=== PATIENT | male | born 1995 | race Hispanic/Latino ===

== ENCOUNTER 2017-12-13 06:15 | Emergency (ER) | payer SELFPAY ==
[2017-12-13 06:16] VITALS: BMI 20.2
--- NOTE | 2017-12-13 07:46 | ED PDOC ---
HPI: General Adult Time Seen by Provider: 12/13/17 07:11 Chief Complaint (Nursing): ENT Problem Chief Complaint (Provider): ENT Problem History Per: Patient History/Exam Limitations: no limitations Onset/Duration Of Symptoms: Days (x 5) Current Symptoms Are (Timing): Still Present Additional Complaint(s): Mr. Powers is a 22 year old male who presents to the ED complaining of sore throat for 5 days. No difficulty swallowing. Patient was told by other hospital he had enlarged tonsils. No fever, coughing, or shortness of breath. Patient states she quit smoking. PMD: No Family Provider Past Medical History Reviewed: Historical Data, Nursing Documentation, Vital Signs Vital Signs: Last Vital Signs Temp 98.2 F 12/13/17 06:41 Pulse 81 12/13/17 06:41 Resp 16 12/13/17 06:41 BP 134/75 12/13/17 06:41 Pulse Ox 99 12/13/17 08:58 - Medical History PMH: Denies: Diabetes, Hepatitis, HIV, HTN, Seizures, Sexually Transmitted Disease - Surgical History Surgical History: No Surg Hx - Family History Family History: States: Unknown Family Hx - Social History Current smoker - smoking cessation education provided: No (Quit smoking) - Immunization History Hx Tetanus Toxoid Vaccination: Yes - Home Medications Home Medications: Ambulatory Orders Medication Instructions Recorded Temazepam [Restoril] 7.5 mg PO HS PRN #10 cap 03/16/16 Clindamycin [Cleocin] 300 mg PO Q6H #28 cap 08/04/16 - Allergies Allergies/Adverse Reactions: Allergies Allergy/AdvReac Type Severity Reaction Status Date / Time Penicillins Allergy RASH Verified 03/16/16 13:37 Review of Systems ROS Statement: Except As Marked, All Systems Reviewed And Found Negative Constitutional: Negative for: Fever ENT: Positive for: Throat Pain. Negative for: Other (difficulty swallowing) Respiratory: Negative for: Cough, Shortness of Breath Physical Exam - Reviewed Nursing Documentation Reviewed: Yes Vital Signs Reviewed: Yes - Physical Exam ENT: Positive for: Pharynx Is (Mild enlarged tonsils bilaterally), Other ((+): Uvula is midline (-): Drooling). Negative for: Tonsillar Exudate Cardiovascular/Chest: Positive for: Regular Rate, Rhythm Respiratory: Positive for: Normal Breath Sounds. Negative for: Respiratory Distress Neurologic/Psych: Positive for: Alert, Oriented (x 3) - ECG O2 Sat by Pulse Oximetry: 99 (RA) Pulse Ox Interpretation: Normal Medical Decision Making Medical Decision Making: Time: 07:37 Impression(s): Sore Throat, Pharyngitis Plan: - Motrin Oral Susp 600 mg PO STAT - Rapid Strep Group A Antigen Stat (+) Group A Beta Strep Ag Time: 08:47 - Zithromax 500 mg PO Scribe Attestation: Documented by Fernie Huntley, acting as a scribe for Veronica De Leon MD Provider Scribe Attestation: All medical record entries made by the Scribe were at my direction and personally dictated by me. I have reviewed the chart and agree that the record accurately reflects my personal performance of the history, physical exam, medical decision making, and the department course for this patient. I have also personally directed, reviewed, and agree with the discharge instructions and disposition. Disposition - Disposition Forms: [employer] (Swedish)
[2017-12-13 10:20] VITALS: BP 149/77; PULSE 82; RESP 18; TEMP 97.9; O2SAT 97
== END 2017-12-13 10:31 | disposition home or self-care (01) ==
LOC: H.ER 06:15
DX: J02.0 Streptococcal pharyngitis (principal); Z88.0 Allergy status to penicillin
CPT/HCPCS: 87430; 96372; 99284; J1100

== ENCOUNTER 2018-10-18 06:15 | Emergency (ER) | payer MEDICAID ==
[2018-10-18 06:16] VITALS: BMI 20.2
--- NOTE | 2018-10-18 07:42 | ED PDOC ---
HPI: General Adult Time Seen by Provider: 10/18/18 07:27 Chief Complaint (Provider): Headache History Per: Patient History/Exam Limitations: no limitations Onset/Duration Of Symptoms: Days Current Symptoms Are (Timing): Still Present Additional Complaint(s): 23 year old male with a past medical history of possible anemia who is presenting to the ED for evaluation of headaches ongoing for months. Patient states that he had a doctors visit over 1 year ago where he was told his iron level was low and that he is anemic but he never followed up. He also admits that he went to [facility] 3-4 months ago and again never followed up. He states that he has medicated with Advil in the past with no relief but denies taking any today. Patient also reports that he stopped drinking and smoking a few months ago. He denies any fevers, nausea, or vomiting. PMD: none provided Past Medical History Reviewed: Historical Data, Nursing Documentation, Vital Signs - Medical History PMH: No Chronic Diseases Denies: Diabetes, Hepatitis, HIV, HTN, Seizures, Sexually Transmitted Disease - Surgical History Surgical History: No Surg Hx - Family History Family History: States: Unknown Family Hx - Social History Current smoker - smoking cessation education provided: No Ex-Smoker (has not smoked in the last 12 months): Yes Alcohol: None Drugs: Denies - Immunization History Hx Tetanus Toxoid Vaccination: Yes - Home Medications Home Medications: Ambulatory Orders Medication Instructions Recorded Temazepam [Restoril] 7.5 mg PO HS PRN #10 cap 03/16/16 RX: Clindamycin [Cleocin] 300 mg PO Q6H #28 cap 08/04/16 Azithromycin [Zithromax] 500 mg PO DAILY #4 tab 12/13/17 Naproxen [Naprosyn] 500 mg PO BID PRN #15 tablet 12/13/17 - Allergies Allergies/Adverse Reactions: Allergies Allergy/AdvReac Type Severity Reaction Status Date / Time Penicillins Allergy RASH Verified 03/16/16 13:37 Review of Systems ROS Statement: Except As Marked, All Systems Reviewed And Found Negative Constitutional: Negative for: Fever Gastrointestinal: Negative for: Nausea, Vomiting Neurological: Positive for: Headache Physical Exam - Reviewed Nursing Documentation Reviewed: Yes Vital Signs Reviewed: Yes - Physical Exam Appears: Positive for: Non-toxic, No Acute Distress (completely comfortable, in no distress) Head Exam: Positive for: ATRAUMATIC, NORMAL INSPECTION, NORMOCEPHALIC Skin: Positive for: Normal Color Eye Exam: Positive for: Normal appearance Neck: Positive for: Normal, Painless ROM Cardiovascular/Chest: Positive for: Regular Rate, Rhythm. Negative for: Murmur Respiratory: Positive for: Normal Breath Sounds. Negative for: Respiratory Distress Gastrointestinal/Abdominal: Positive for: Normal Exam, Soft. Negative for: Tenderness Extremity: Positive for: Normal ROM Neurologic/Psych: Positive for: Alert, mophead sewer II-XII, Oriented, Gait (stable). Negative for: Motor/Sensory Deficits, Aphasia, Facial Droop - Laboratory Results Result Diagrams: 10/18/18 08:08 10/18/18 08:08 Medical Decision Making Medical Decision Making: Time: 7:57 Plan: headaches, gen weakness, normal exam --CMP --CBC --Motrin 600 mg PO 9:10 Labs were reviewed with no clinically significant abnormalities. Patient, upon discussion with provider continues to complain about headaches. Provider ordered a CT Head for precautionary measures. CT Head: FINDINGS: HEMORRHAGE: No intracranial hemorrhage. BRAIN: No mass effect or edema. No atrophy or chronic microvascular ischemic changes. VENTRICLES: Unremarkable. No hydrocephalus. CALVARIUM: Unremarkable. PARANASAL SINUSES: Unremarkable as visualized. No significant inflammatory changes. MASTOID AIR CELLS: Unremarkable as visualized. No inflammatory changes. OTHER FINDINGS: None. IMPRESSION: No acute intracranial abnormalities. No significant findings to account for the clinical presentation. pt sleeping throughout ER stay. in no distress. normal vitals and labs. isntrcuted to follow up as oupt. Scribe Attestation: Documented by Michelle Anguiano, acting as a scribe for Ajay Law MD. Provider Scribe Attestation: All medical record entries made by the Scribe were at my direction and pers onally dictated by me. I have reviewed the chart and agree that the record accurately reflects my personal performance of the history, physical exam, medical decision making, and the department course for this patient. I have also personally directed, reviewed, and agree with the discharge instructions and disposition. Disposition - Clinical Impression Clinical Impression: General weakness, Headache - Patient ED Disposition Is Patient to be Admitted: No Counseled Patient/Family Regarding: Studies Performed, Diagnosis, Need For Followup - Disposition Referrals: [facility] [Outside] Disposition: Routine/Home Disposition Time: 09:00 Condition: IMPROVED Additional Instructions: follow up in the clinic for ongoing medical care return to the ED with any worsening or concerning symptoms Instructions: Generalized Weakness (DC), Weakness (ED) Forms: [employer] (Sami)
[2018-10-18 08:48] LABS: BASO % 0.1 % (0.0-2.0); EOS # 0.1 K/uL (0.0-0.7); EOS % 1.1 % (0.0-4.0); HEMOGLOBIN 16.2 g/dL (12.0-18.0); LYMPH # 1.7 K/uL (1.0-4.3); LYMPH % 25.3 % (20.0-40.0); MEAN CELL VOLUME 89.6 fl (80.0-94.0); MEAN CORPUSCULAR HEMOGLOBIN 30.3 pg (27.0-31.0); MEAN CORPUSCULAR HGB CONC 33.8 g/dL (33.0-37.0); MEAN PLATELET VOLUME 8.4 fl (7.2-11.7); MONO # 0.6 K/uL (0.0-0.8); MONO % 8.6 % (0.0-10.0); NEUT # 4.3 K/uL (1.8-7.0); NEUT % 64.9 % (50.0-75.0); NRBC % 0.2 % (0.0-0.0); RBC 5.34 Mil/uL (4.40-5.90); RED CELL DISTRIBUTION WIDTH 12.6 % (11.5-14.5); WHITE BLOOD COUNT 6.6 K/uL (4.8-10.8)
[2018-10-18 09:03] LABS: ALB/GLOB RATIO 1.4 (1.0-2.1); ALBUMIN 4.6 g/dL (3.5-5.0); ALT/SGPT 41 U/L (21-72); AST/SGOT 39 U/L (17-59); BLOOD UREA NITROGEN 20 mg/dl (9-20); CALCIUM 9.7 mg/dL (8.4-10.2); GFR NON-AFRICAN AMERICAN > 60
[2018-10-18 09:55] VITALS: RESP 18
[2018-10-18 10:03] VITALS: BP 137/81; PULSE 95; TEMP 98.5; O2SAT 100
--- NOTE | 2018-10-18 10:34 | CT ---
Date of service: 10/18/2018 PROCEDURE: CT HEAD WITHOUT CONTRAST. HISTORY: headache COMPARISON: None available. TECHNIQUE: Axial computed tomography images were obtained through the head/brain without intravenous contrast. Supplemental Coronal and Sagittal projections created and reviewed. Radiation dose: Total exam DLP = 813.35 mGy-cm. This CT exam was performed using one or more of the following dose reduction techniques: Automated exposure control, adjustment of the mA and/or kV according to patient size, and/or use of iterative reconstruction technique. FINDINGS: HEMORRHAGE: No intracranial hemorrhage. BRAIN: No mass effect or edema. No atrophy or chronic microvascular ischemic changes. VENTRICLES: Unremarkable. No hydrocephalus. CALVARIUM: Unremarkable. PARANASAL SINUSES: Unremarkable as visualized. No significant inflammatory changes. MASTOID AIR CELLS: Unremarkable as visualized. No inflammatory changes. OTHER FINDINGS: None. IMPRESSION: No acute intracranial abnormalities. No significant findings to account for the clinical presentation.
== END 2018-10-18 10:55 | disposition home or self-care (01) ==
LOC: H.ER 06:15
DX: R51 Headache (principal); M62.81 Muscle weakness (generalized); D64.9 Anemia, unspecified; Z88.0 Allergy status to penicillin

== ENCOUNTER 2018-11-18 01:04 | Emergency (ER) | payer SELFPAY ==
[2018-11-18 01:04] VITALS: BMI 20.2
[2018-11-18 01:30] VITALS: O2SAT 97
[2018-11-18] MEDS ORDERED: DiphenhydrAMINE 50 mg/ml Inj IM STA (03:06)
[2018-11-18 03:42] LABS: BASO % 0.3 % (0.0-2.0); EOS # 0.1 K/uL (0.0-0.7); EOS % 1.7 % (0.0-4.0); LYMPH % 22.8 % (20.0-40.0); MEAN CELL VOLUME 88.1 fl (80.0-94.0); MEAN CORPUSCULAR HEMOGLOBIN 30.1 pg (27.0-31.0); MEAN CORPUSCULAR HGB CONC 34.2 g/dL (33.0-37.0); MEAN PLATELET VOLUME 8.1 fl (7.2-11.7); MONO # 0.8 K/uL (0.0-0.8); MONO % 9.3 % (0.0-10.0); NEUT # 5.8 K/uL (1.8-7.0); NEUT % 65.9 % (50.0-75.0); NRBC % 0.1 % (0.0-0.0); RBC 5.32 Mil/uL (4.40-5.90); RED CELL DISTRIBUTION WIDTH 12.8 % (11.5-14.5); WHITE BLOOD COUNT 8.8 K/uL (4.8-10.8)
[2018-11-18] MEDS ORDERED: DiphenhydrAMINE 50 mg/ml Inj ONE (03:43)
[2018-11-18 03:47] LABS: URINE BACTERIA OCC (<OCC); URINE BILIRUBIN NEGATIVE (NEGATIVE); URINE BLOOD NEGATIVE (NEGATIVE); URINE CLARITY TURBID (Clear); URINE COLOR AMBER (YELLOW); URINE GLUCOSE (UA) NEG (NEGATIVE); URINE LEUKOCYTE ESTERASE NEG Leu/uL (Negative); URINE PROTEIN NEGATIVE (NEGATIVE)
[2018-11-18 03:52] LABS: ALB/GLOB RATIO 1.4 (1.0-2.1); ALBUMIN 4.4 g/dL (3.5-5.0); ALT/SGPT 27 U/L (21-72); AST/SGOT 22 U/L (17-59); BLOOD UREA NITROGEN 16 mg/dl (9-20); CALCIUM 9.9 mg/dL (8.4-10.2); GFR NON-AFRICAN AMERICAN > 60
[2018-11-18 04:10] LABS: BARBITURATES, UR NEGATIVE (NEGATIVE); BENZODIAZEPINES, UR NEGATIVE (NEGATIVE); OPIATES, UR NEGATIVE (NEGATIVE); PHENCYCLIDINE, UR NEGATIVE (NEGATIVE)
--- NOTE | 2018-11-18 06:18 | ED PDOC ---
HPI: Chest Pain Time Seen by Provider: 11/18/18 02:16 Chief Complaint (Nursing): Chest Pain Chief Complaint (Provider): Chest Pain History Per: Patient History/Exam Limitations: no limitations Onset/Duration Of Symptoms: Waxing/Waning, Intermittent Episodes Current Symptoms Are (Timing): Gone Now (Pt presetns to the ED complaining of nondescript chest pain particularly after he smokes marijuana. Pt does not believe the pain to be related tothe consumptiom of cannibis. Pt denies other sx, inlcuding NVD) Past Medical History Reviewed: Historical Data, Nursing Documentation, Vital Signs Vital Signs: Last Vital Signs Temp 99.3 F 11/18/18 01:25 Pulse 85 11/18/18 01:25 Resp 18 11/18/18 01:25 BP 133/73 11/18/18 01:25 Pulse Ox 97 11/18/18 01:25 - Medical History PMH: Denies: Diabetes, Hepatitis, HIV, HTN, Chronic Kidney Disease, Seizures, Sexually Transmitted Disease - Family History Family History: States: Unknown Family Hx - Immunization History Hx Tetanus Toxoid Vaccination: Yes - Home Medications Home Medications: Ambulatory Orders Medication Instructions Recorded Temazepam [Restoril] 7.5 mg PO HS PRN #10 cap 03/16/16 Clindamycin [Cleocin] 300 mg PO Q6H #28 cap 08/04/16 Azithromycin [Zithromax] 500 mg PO DAILY #4 tab 12/13/17 Naproxen [Naprosyn] 500 mg PO BID PRN #15 tablet 12/13/17 - Allergies Allergies/Adverse Reactions: Allergies Allergy/AdvReac Type Severity Reaction Status Date / Time Penicillins Allergy RASH Verified 03/16/16 13:37 CHAYO Risk Score for UA/NSTEMI - CHAYO Risk Score Age > 64: NO 3 or more CAD Risk Factors: NO Known CAD (Stenosis greater than 50%): NO Aspirin use in past 7 days: NO Severe Angina: NO EKG ST changes greater than 0.5mm: NO Positive Cardiac Marker: NO CHAYO Score: 0 Risk %: 5% Wells Criteria for PE - Wells Criteria for Pulmonary Embolism Clinical Signs and Symptoms of DVT: No P.E is #1 Diagnosis, or Equally Likely: No Heart Rate >100: No Immobilization at least 3 days;Surgery previous 4 weeks: No Previous, objectively diagnosed PE or DVT: No Hemoptysis: No Malignancy w/treatment within 6 months, or palliative: No Total Score: 0 Review of Systems ROS Statement: Except As Marked, All Systems Reviewed And Found Negative Cardiovascular: Positive for: Chest Pain. Negative for: Palpitations Respiratory: Negative for: Cough, Shortness of Breath, SOB with Exertion, Wheezing Physical Exam - Reviewed Nursing Documentation Reviewed: Yes Vital Signs Reviewed: Yes - Physical Exam Appears: Positive for: Well, Non-toxic, No Acute Distress, Uncomfortable Head Exam: Positive for: ATRAUMATIC, NORMAL INSPECTION Skin: Positive for: Normal Color, Warm, Dry. Negative for: Diaphoresis, Pallor, Rash Eye Exam: Positive for: Normal appearance, PERRL. Negative for: Nystagmus, Periorbital swelling, Periorbital tenderness ENT: Positive for: Normal ENT Inspection Neck: Positive for: Normal, Painless ROM, Supple. Negative for: Decreased ROM Cardiovascular/Chest: Positive for: Regular Rate, Rhythm Respiratory: Positive for: Normal Breath Sounds Pulses-Carotid (L): 2+ Pulses-Carotid (R): 2+ Pulses-Radial (L): 2+ Pulses-Radial (R): 2+ - Laboratory Results Result Diagrams: 11/18/18 03:25 11/18/18 03:25 Lab Results: Troponin I < 0.0120 ng/mL (0.00-0.120) 11/18/18 03:25 Total Bilirubin 0.5 mg/dl (0.2-1.3) 11/18/18 03:25 AST 22 U/L (17-59) 11/18/18 03:25 ALT 27 U/L (21-72) 11/18/18 03:25 Alkaline Phosphatase 72 U/L (38-126) 11/18/18 03:25 Total Protein 7.6 G/DL (6.3-8.2) 11/18/18 03:25 Albumin 4.4 g/dL (3.5-5.0) 11/18/18 03:25 Globulin 3.2 gm/dL (2.2-3.9) 11/18/18 03:25 Albumin/Globulin Ratio 1.4 (1.0-2.1) 11/18/18 03:25 Urine Color Radha (YELLOW) 11/18/18 03:25 Urine Clarity Turbid (Clear) 11/18/18 03:25 Urine pH 6.0 (5.0-8.0) 11/18/18 03:25 Ur Specific [place] 1.023 (1.003-1.030) 11/18/18 03:25 Urine Protein Negative mg/dL (NEGATIVE) 11/18/18 03:25 Urine Glucose (UA) Neg mg/dL (NEGATIVE) 11/18/18 03:25 Urine Ketones Negative mg/dL (NEGATIVE) 11/18/18 03:25 Urine Blood Negative (NEGATIVE) 11/18/18 03:25 Urine Nitrate Negative (NEGATIVE) 11/18/18 03:25 Urine Bilirubin Negative (NEGATIVE) 11/18/18 03:25 Urine Urobilinogen 2.0 mg/dL (0.2-1.0) 11/18/18 03:25 Ur Leukocyte Esterase Neg Phoebe/uL (Negative) 11/18/18 03:25 Urine RBC (Auto) 3 /hpf (0-3) 11/18/18 03:25 Urine Microscopic WBC 1 /hpf (0-5) 11/18/18 03:25 Urine Bacteria Occ (<OCC) H 11/18/18 03:25 - ECG O2 Sat by Pulse Oximetry: 97 Medical Decision Making Medical Decision Making: R/O ACS event vs CP nonrelated to cardio P: cardiac workup Pt also reports a migrane headache at the right confucianist. Medicaton in form of benedryl and toradol offered and refused by patint All diagnostic results for patient resulted without clinical significance Pt informed Pt is stable for discharge Pt is safe for discharge Disposition - Clinical Impression Clinical Impression: Atypical chest pain - Patient ED Disposition Is Patient to be Admitted: No Counseled Patient/Family Regarding: Diagnosis, Need For Followup - Disposition Referrals: [facility] [Outside] [facility] [Outside] Disposition: Routine/Home Disposition Time: 06:21 Condition: STABLE Instructions: Chest Pain That Is Not Caused by the Heart (DC)
[2018-11-18 07:07] VITALS: BP 144/79; PULSE 74; RESP 16; TEMP 98.2
--- NOTE | 2018-11-18 10:28 | RAD ---
Date of service: 11/18/2018 HISTORY: cp COMPARISON: No prior. TECHNIQUE: Chest PA and lateral FINDINGS: LUNGS: No active pulmonary disease. PLEURA: No significant pleural effusion identified. No pneumothorax apparent. CARDIOVASCULAR: No aortic atherosclerotic calcification present. Normal cardiac size. No pulmonary vascular congestion. OSSEOUS STRUCTURES: No significant abnormalities. VISUALIZED UPPER ABDOMEN: Normal. OTHER FINDINGS: None. IMPRESSION: No active disease.
--- NOTE | 2018-11-19 10:06 | CARD ---
APPROVED REPORT Date of service: 11/18/2018 EKG Measurement Heart [id number] <Conclusion> Normal sinus rhythm Normal Electrocardiogram
== END 2018-11-18 06:27 | disposition home or self-care (01) ==
LOC: H.ER 01:04
DX: R07.89 Other chest pain (principal); F12.90 Cannabis use, unspecified, uncomplicated; Z88.0 Allergy status to penicillin
CPT/HCPCS: 71046; 80053; 81003; 84484; 85025; 87804; 93005; 99283; G0480